=== PATIENT | female | born 1995 | race Caucasian/White ===

== ENCOUNTER 2016-12-08 14:29 | Emergency (ER) | payer OTHER ==
[~2016-12-08 14:29] MED LIST: AMOXICILLIN500 M1 PO; ANAPROX DS550 M1 PO; BACLOFEN10 MG PO; BACTRIM DS TABL1 TA1 PO; ELIMITE60 GM TOP; FLEXERIL10 M1 PO; IBUPROFEN600 MG PO; IMPLANT BIRTH CONTRO; KEFLEX500 M2 PO; NAPROSYN250 M1 PO; NO MEDICATIONS; ZANTAC PO
== END 2016-12-08 15:51 | disposition home or self-care (01) ==
LOC: CFTX 14:29
DX: L02.214 Cutaneous abscess of groin (principal); Z98.890 Other specified postprocedural states
CPT/HCPCS: 84703; 99282

== ENCOUNTER 2016-12-24 15:56 | Emergency (ER) | payer OTHER ==
--- NOTE | ~2016-12-24 | CR141 ---
[facility] A Service of [facility] RADIOLOGY TEXT RESULTS PATIENT: LIANG DE LOS SANTOS LOCATION: [facility] : [birth year] UNIT #: [id number] AGE: [address]: AMANDA KC SEX: F ORDER DR: [id number] [facility] [address] [place], [place] [address] [id number] E MR#: [id number] Acc #: [id number] NAME: LIANG DE LOS SANTOS : 1995 SEX: F STUDY DATE/TIME: 12/24/2016 17:41 UNIT: [facility] ROOM: STUDY DESCRIPTION: CR Hand Min 3 Views Lt Attending Physician: Amanda Kc A.P.R.N. Ordering Physician: Amanda Kc A.P.R.N. Primary Care Physician: Primary Care Physician No MEDICAL IMAGING REPORT This report is preliminary unless electronic signature is present EXAM Left hand 3 views HISTORY Pain for 3 days with left hand and wrist swelling. No trauma. COMMENT 3 views of the left hand are reviewed. There is a separate dictation of the left wrist. FINDINGS The bones are normally mineralized. No acute fracture, dislocation or radiopaque foreign body. No osseous erosion appreciated. No osteophyte formation appreciated. IMPRESSION Essentially normal plain film assessment of the left hand. If there is clinical concern for an infectious or inflammatory arthritis, further evaluation would be suggested. Dictated by... Yesica Vicente M.D. THIS IS AN ELECTRONICALLY VERIFIED REPORT Yesica Vicente M.D. at 12/25/2016 1:43 PM SAC/to TD: 12/25/2016 08:29 JOB #: [id number] [facility] A Service of [facility] RADIOLOGY TEXT RESULTS PATIENT: LIANG DE LOS SANTOS LOCATION: [facility] : [birth year] UNIT #: [id number] AGE: [address]: AMANDA KC SEX: F ORDER DR: MEDICAL IMAGING REPORT Page 1 of 1 COPY
--- NOTE | ~2016-12-24 | CR281 ---
[facility] A Service of [facility] & [facility] RADIOLOGY TEXT RESULTS PATIENT: LIANG DE LOS SANTOS LOCATION: [facility] : [birth year] UNIT #: [id number] AGE: [address]: AMANDA KC SEX: F ORDER DR: [id number] [facility] [address] [place], [place] [address] [id number] E MR#: [id number] Acc #: [id number] NAME: LIANG DE LOS SANTOS : 1995 SEX: F STUDY DATE/TIME: 12/24/2016 17:43 UNIT: [facility] ROOM: STUDY DESCRIPTION: CR Wrist Min 3 View Lt Attending Physician: Amanda Kc A.P.R.N. Ordering Physician: Amanda Kc A.P.R.N. Primary Care Physician: Primary Care Physician No MEDICAL IMAGING REPORT This report is preliminary unless electronic signature is present EXAM Left wrist INDICATIONS Pain and swelling 3 days. No trauma. COMMENT 4 films of the left wrist are reviewed. Separate dictation of left hand. FINDINGS Bones are normally mineralized. There is no acute fracture, dislocation, radiopaque foreign body, bone erosion appreciated. IMPRESSION Essentially normal plain film assessment left wrist. If there is concern for some infectious or inflammatory arthritis, further clinical evaluation is recommended. Dictated by... Yesica Vicente M.D. THIS IS AN ELECTRONICALLY VERIFIED REPORT Yesica Vicente M.D. at 12/25/2016 1:43 PM SAC/to TD: 12/25/2016 08:48 JOB #: [id number] MEDICAL IMAGING REPORT Page 1 of 1 COPY
[2016-12-24 18:02] LABS: BASOPHIL% 0.3 % (0-2.5); DIFF IND NO; EOSINOPHIL# 0.2 X10e3 (0-0.7); EOSINOPHIL% 1.9 % (0.0-7.0); HEMATOCRIT 37.5 % (35.0-45.0); HEMOGLOBIN 12.4 gm/dL (12.0-16.0); LYMPHOCYTE# 4.6 X10e3 (1.0-3.5); LYMPHOCYTE% 40.5 % (17.0-45.0); MEAN CELL VOLUME 84.1 FL (83-96); MEAN CORPUSCULAR HEMOGLOBIN 27.7 PG (28-34); MEAN PLATELET VOLUME 7.6 FL (6.5-11.5); MONOCYTE# 0.9 X10e3 (0-1.0); MONOCYTE% 8.3 % (3.0-12.0); NEUTROPHIL# 5.6 X10e3 (1.5-7.1); PLATELET COUNT 299 X10e3 (140-420); RED BLOOD COUNT 4.46 X10e (3.90-5.30); RED CELL DISTRIBUTION WIDTH 14.2 % (11.0-15.5); WHITE BLOOD COUNT 11.3 X10e3 (4.0-10.5)
[2016-12-24 18:22] LABS: BUN/CREATININE RATIO 16.66; CALCIUM SERUM 9.4 mg/dL (8.4-10.2); CREATININE SERUM 0.6 mg/dL (0.6-1.4); GLOM FILT RATE Estimated 129.4 mL/min (>60); POTASSIUM 3.9 mmol/L (3.5-5.1)
== END 2016-12-24 20:30 | disposition short-term general hospital (02) ==
LOC: CFTX 15:56 → CED 15:56 → CFTX 17:20
PROVIDERS: Nurse Practitioner
DX: L03.114 Cellulitis of left upper limb (principal); F17.200 Nicotine dependence, unspecified, uncomplicated
CPT/HCPCS: 36415; 73110; 73130; 80048; 85025; 87040; 96365; 99284; J3370

== ENCOUNTER 2017-02-14 18:31 | Emergency (ER) | payer OTHER ==
--- NOTE | ~2017-02-14 | CR132 ---
[facility] A Service of [facility] RADIOLOGY TEXT RESULTS PATIENT: LIANG DE LOS SANTOS LOCATION: SED : [birth year] UNIT #: [id number] AGE: [address]: Jose Gregorio PAC SEX: F ORDER DR: [id number] [address] [address] [id number] E MR#: [id number] Acc #: [id number] NAME: LIANG DE LOS SANTOS : 1995 SEX: F STUDY DATE/TIME: 02/14/2017 19:11 UNIT: [facility] ROOM: STUDY DESCRIPTION: CR Forearm 2 View Lt Attending Physician: Jose Gregorio P.A.-C. Ordering Physician: Jose Gregorio P.A.-C. Primary Care Physician: Primary Care Physician No MEDICAL IMAGING REPORT This report is preliminary unless electronic signature is present. EXAM Left forearm 2 views HISTORY Arm swelling and redness and abscess. Heroin injection. FINDINGS 2 views left forearm demonstrate satisfactory bone alignment. No fracture, bone destruction or abnormal sclerosis. Tiny curvilinear superficial metal foreign body measuring close to 3 mm, in the antecubital fossa, likely a tiny needle fragment. IMPRESSION 1. No fracture. 2. Satisfactory bone alignment. 3. A 3 mm thin linear superficial metal foreign body in the soft tissues over the antecubital fossa measuring close to 3 mm, probably a tiny needle fragment. Dictated by... Felipe Ramirez M.D. THIS IS AN ELECTRONICALLY VERIFIED REPORT Felipe Ramirez M.D. at 02/16/2017 12:06 AM MANNIE/mickey TD: 02/15/2017 05:08 JOB #: [id number] MEDICAL IMAGING REPORT [facility] A Service [facility] RADIOLOGY TEXT RESULTS PATIENT: LIANG DE LOS SANTOS LOCATION: SED : [birth year] UNIT #: [id number] AGE: [address]: Jose Gregorio SEX: F ORDER DR: Page 1 of 1
[2017-02-14] MEDS ORDERED: NO MEDICATIONS (18:39)
[2017-02-14 19:39] LABS: BASOPHIL% 0.1 % (0-2.5); EOSINOPHIL# 0.1 X10e3 (0-0.7); EOSINOPHIL% 0.5 % (0.0-7.0); HEMATOCRIT 36.7 % (35.0-45.0); HEMOGLOBIN 12.3 gm/dL (12.0-16.0); LYMPHOCYTE# 1.1 X10e3 (1.0-3.5); LYMPHOCYTE% 6.5 % (17.0-45.0); MEAN CELL VOLUME 83.3 FL (83-96); MEAN CORPUSCULAR HEMOGLOBIN 27.9 PG (28-34); MEAN CORPUSCULAR HGB CONC 33.5 g/dL (30-36); MEAN PLATELET VOLUME 7.9 FL (6.5-11.5); MONOCYTE# 1.1 X10e3 (0-1.0); MONOCYTE% 6.4 % (3.0-12.0); NEUTROPHIL# 14.8 X10e3 (1.5-7.1); NEUTROPHIL% 86.5 % (40-75); PLATELET COUNT 366 X10e3 (140-420); RED BLOOD COUNT 4.41 X10e (3.90-5.30); WHITE BLOOD COUNT 17.1 X10e3 (4.0-10.5)
[2017-02-14 19:42] LABS: DIFF IND NO
[2017-02-14 19:57] LABS: ALBUMIN SERUM 3.7 g/dL (3.5-5.0); BILIRUBIN, DIRECT 0.1 mg/dL (0.0-0.2); BILIRUBIN,INDIRECT 0.7 mg/dL (0.0-0.9); BILIRUBIN,TOTAL 0.8 mg/dL (0.2-2.0); BUN/CREATININE RATIO 18.33; CALCIUM SERUM 9.9 mg/dL (8.4-10.2); CREATININE SERUM 0.6 mg/dL (0.6-1.4); GLOM FILT RATE Estimated 129.4 mL/min (>60); POTASSIUM 3.9 mmol/L (3.5-5.1); PROTEIN TOTAL SERUM 8.5 g/dL (6.0-8.3)
== END 2017-02-14 23:52 ==
LOC: SED 18:31
PROVIDERS: Physician Assistant
DX: L03.114 Cellulitis of left upper limb (principal); F17.200 Nicotine dependence, unspecified, uncomplicated
CPT/HCPCS: 36415; 73090; 80048; 80076; 83605; 84703; 85025; 87040; 90471; 90715; 96374; 99284; J2543; J3370